=== PATIENT | female | born 1980 | race Caucasian/White ===

== ENCOUNTER 2017-02-17 17:23 | Emergency (ER) | payer MEDICAID ==
[~2017-02-17] VITALS: Ht 167.6 cm; Wt 68.0 kg
[~2017-02-17 17:23] MED LIST: APAP/BUTALBITAL1 TA1 PO; CIPRO 500MG TA500 MG PO; DICLOFENAC 50MG50 MG PO; FLEXERIL10 M1 PO; LISINOPRIL 10MG10 MG NG; ZOFRAN ODT4 MG PO
[2017-02-17] MEDS ORDERED: TOPIRAMATE50 MG PO (17:54)
[2017-02-17] MEDS ORDERED: MAXALT10 MG PO (17:56)
[2017-02-17] MEDS ORDERED: MELOXICAM15 MG PO (17:56)
[2017-02-17] MEDS ORDERED: EFFEXOR XR150 MG PO (17:56)
[2017-02-17] MEDS ORDERED: IBUPROFEN800 MG PO (18:41)
--- NOTE | 2017-02-17 18:42 | Urgent Treatment Center Report ---
History of Present Issue Date/Time Seen by Provider 02/17/17 4669 Visit Reason Pt arrived:Walked Presenting Problem:PT STATES PAIN TO LEFT WRIST. STATES SHE PICKED UP HER NEPHEW A MONTH AGO AND HAS HAD PAIN EVER SINCE. STATES PAIN WHEN SHE MOVES WRIST SIDE TO SIDE AND THAT PAIN IS WORSE AT NIGHT. Location if Accident: Onset of symptoms date/time:/ or onset unknown for:MEDICAL HX UNKNOWN Have you (or family members/close friends) recently traveled outside the [place]? N If Yes, where/when: Have you had exposure to infectious disease within the past month? TB? Other? Specify: Patient states that she has been having left wrist pain for over a month now state that pain has not improved and she thinks she may have pulled something in there. States that she can move the wrist area up and down without much pain but pain worsens when she trys to move it back and forth Source patient ALLERGIES Coded Allergies: No Known Allergies (02/17/17) Home Medications Reported Medications Topiramate 50 MG PO BID #60 Rizatriptan Benzoate (Maxalt) 10 MG PO PRN PRN MIGRAINES VENLAFAXINE HCL (Effexor XR 150MG) 150 MG PO DAILY Meloxicam (Meloxicam 15MG) 15 MG PO DAILY History Medical History General CAD? No Angina: No CA: No Hypertension? Yes Hyperlipidemia? No CHF? No DVT? No PE? No COPD? No Asthma? No Anemia? No GERD? No Gastric ulcers? No GI Bleed? No Hernia? No Thyroid Problems? No Hypothyroidism? No CVA? No Seizures? No Diabetes? No Renal Insuffiency? No UTI? No Stones? No GB Disease: No Nephritic Syndrome? No Asplenia? No Hepatitis? No Sickle Cell Disease? No Arthritis? No Migraines? Yes Cataracts? No Glaucoma? No MRSA? No HIV? No TB? No Anxiety? No Depression? No Cancer? 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 No: respiratory distress. 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 No Results/Orders Orders Procedure Date/time Status UTC STABILIZE JOINT/AREA 02/17 1837 Active Departure Departure Time of Disposition 1908 Disposition DC Home or Self Care(routine) Clinical Impression Primary Impression: Wrist sprain Qualifiers: Encounter type: initial encounter Laterality: left Qualified Code: S63.502A - Unspecified sprain of left wrist, initial encounter Condition STABLE Referrals Loree MULTANI,Shawn (Family): 2 Days-Call Office Follow up if no improvement or worsening of symptoms Patient Instructions DI for Wrist Sprain, How To Perform RICE (Rest, Ice, Compress, Elevate), Sprain Additional Instructions *RICE, Rest the extremity, Ice 15-20 minutes 3-4 times daily, Compress- wear the renato wrap, Elevate the extremity when at rest *Renato wrap is for support and help control swelling, use it except in the shower. Be sure that is not to tight but not to loose either *Elevate as discussed as much as possible to help reduce swelling and pain *Ibuprofen 600-800mg every 6-8 hours as needed for pain an inflammation. If need something more can take Tylenol in between doses of Ibuprofen to help Immediately follow up for new or worsening of symptoms, or no noticeable improvement over the nex 3-5 days Discharge Counseling Counseled pt/family regarding diagnosis, test results, medications/RX, home care, follow up needs Prescriptions Current Visit Scripts Ibuprofen (Ibuprofen 800MG) 800 MG PO QIDP PRN pain #30 TAB at 1908
--- NOTE | 2017-02-17 18:42 | Urgent Treatment Center Report ---
History of Present Issue Date/Time Seen by Provider 02/17/17 0698 Visit Reason Pt arrived:Walked Presenting Problem:PT STATES PAIN TO LEFT WRIST. STATES SHE PICKED UP HER NEPHEW A MONTH AGO AND HAS HAD PAIN EVER SINCE. STATES PAIN WHEN SHE MOVES WRIST SIDE TO SIDE AND THAT PAIN IS WORSE AT NIGHT. Location if Accident: Onset of symptoms date/time:/ or onset unknown for:MEDICAL HX UNKNOWN Have you (or family members/close friends) recently traveled outside the [place]? N If Yes, where/when: Have you had exposure to infectious disease within the past month? TB? Other? Specify: Patient states that she has been having left wrist pain for over a month now state that pain has not improved and she thinks she may have pulled something in there. States that she can move the wrist area up and down without much pain but pain worsens when she trys to move it back and forth Source patient ALLERGIES Coded Allergies: No Known Allergies (02/17/17) Home Medications Reported Medications Topiramate 50 MG PO BID #60 Rizatriptan Benzoate (Maxalt) 10 MG PO PRN PRN MIGRAINES VENLAFAXINE HCL (Effexor XR 150MG) 150 MG PO DAILY Meloxicam (Meloxicam 15MG) 15 MG PO DAILY History Medical History General CAD? No Angina: No HI: No Hypertension? Yes Hyperlipidemia? No CHF? No DVT? No PE? No COPD? No Asthma? No Anemia? No GERD? No Gastric ulcers? No GI Bleed? No Hernia? No Thyroid Problems? No Hypothyroidism? No CVA? No Seizures? No Diabetes? No Renal Insuffiency? No UTI? No Stones? No GB Disease: No Nephritic Syndrome? No Asplenia? No Hepatitis? No Sickle Cell Disease? No Arthritis? No Migraines? Yes Cataracts? No Glaucoma? No MRSA? No HIV? No TB? No Anxiety? No Depression? No Cancer? 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 No: respiratory distress. 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 No Results/Orders Orders Procedure Date/time Status UTC STABILIZE JOINT/AREA 02/17 1837 Active Departure Departure Time of Disposition 1908 Disposition DC Home or Self Care(routine) Clinical Impression Primary Impression: Wrist sprain Qualifiers: Encounter type: initial encounter Laterality: left Qualified Code: S63.502A - Unspecified sprain of left wrist, initial encounter Condition STABLE Referrals Loree MULTANI,Shawn (Family): 2 Days-Call Office Follow up if no improvement or worsening of symptoms Patient Instructions DI for Wrist Sprain, How To Perform RICE (Rest, Ice, Compress, Elevate), Sprain Additional Instructions *RICE, Rest the extremity, Ice 15-20 minutes 3-4 times daily, Compress- wear the renato wrap, Elevate the extremity when at rest *Renato wrap is for support and help control swelling, use it except in the shower. Be sure that is not to tight but not to loose either *Elevate as discussed as much as possible to help reduce swelling and pain *Ibuprofen 600-800mg every 6-8 hours as needed for pain an inflammation. If need something more can take Tylenol in between doses of Ibuprofen to help Immediately follow up for new or worsening of symptoms, or no noticeable improvement over the nex 3-5 days Discharge Counseling Counseled pt/family regarding diagnosis, test results, medications/RX, home care, follow up needs Prescriptions Current Visit Scripts Ibuprofen (Ibuprofen 800MG) 800 MG PO QIDP PRN pain #30 TAB at 1907
--- NOTE | 2017-02-17 19:05 | RADIOLOGY REPORT PS360 ---
WRIST-3 VIEWS-LT COMPARISON: None HISTORY: Left wrist pain after picking up his nephew TECHNIQUE: AP lateral and oblique views FINDINGS: The distal radius and ulna appear intact. The carpal bones appear normal and the soft tissues are normal. IMPRESSION: Negative left wrist
[2017-02-17 19:15] VITALS: BP 150/83
--- OUTSIDE RECORDS SUMMARY | 2017-02-18 07:40 | External Medical Summary Rpt ---
Author Author , Organization [employer] Address Unknown Phone Unavailable Care Team Providers Care Timing Machine Operator Name Role Phone TOMY SMITH MD, Unavailable Unavailable TOMY SMITH MD [facility] Unavailable Un[facility] NEEMA RODGERS Unavailable Unavailable [facility], Unavailable Unavailable [facility] Burton Snyder MD, Unavailable Unavailable VIRGILIO Soto MD Unavailable Unavailable [facility] PICKLESIMER ROSANNE, Unavailable Unavailable PICKLESIM[facility] ROSANNE SCIFRES, SCIFRES Unavailable Unavailable SCIFRES, SCIFRES Unavailable Unavailable BASILIO, BASILIO Unavailable Unavailable Purpose Continuity of Care Document - 11-14-2012 through 2016 Problems Code Diagnosis DOS Provider Status [id number] MIGRAINE 12-05-2016 [facility] UNS NOT ASSOCIATES INTRACT W/O STATUS MIGRAINOSUS J069 ACUTE UPPER 12-03-2016 [facility] RESPIRATORY INFECTION UNSPECIFIED [id number] MIGRAINE 11-07-2016 [facility] UNS ASSOCIATES INTRACTABLE W/O STATUS MIGRAINOSUS H5203 HYPERMETROP 11-02-2016 SCIFRES IA BILATERAL V2509 OT GENERAL 04-29-2015 [facility] CNSL&ADVICE GROUP CONTRACEPT MANAGEMENT V7231 ROUTINE 04-29-2015 [facility] AL EXAMINATION 847.2 847.2 08-03-2013 [facility] REGION 401.9 401.9 11-14-2012 [facility] Allergies, Adverse Reactions, Alerts Type Allergy to substance Adverse Reaction to Substance Substance Reaction Severity NO KNOWN ALLERGIES Unknown Unknown Medications Na ND Rx Da Fi Fi Am Da Di Ph RX Ph St me C No te ll ll ou ys ag ar # ys at rm s nt no ma ic us Or Da si cy ia de te s n re d ME 69 03 04 30 30 00 KE Ac LO 2 -2 .0 00 NT ti XI 70 8- - 00 UC ve CA 15 20 20 86 [place] M 90 17 17 91 15 7 29 CV S MG PH AR TA MA BL CY ET LL C, DB A CV S PH AR MA CY #0 54 37 VE 00 03 04 30 30 00 KE Ac NL 09 -2 -2 .0 00 NT ti AF 37 8- - 00 UC ve AX 38 20 20 86 [place] IN 69 17 17 34 E 8 27 CV HC S L PH ER AR MA 15 CY 0 MG LL C, CA P DB A CV S PH AR MA CY #0 54 37 TO 69 03 04 60 30 00 KE Ac PI 09 -1 -0 .0 00 NT ti RA 70 5- 7- 00 00 UC ve MA 81 20 20 87 [place] TE 70 17 17 24 3 23 CV 50 S PH MG AR MA TA CY BL ET LL C, DB A CV S PH AR MA CY #0 54 37 VE 00 02 03 30 30 00 KE Ac NL 09 -2 -2 .0 00 NT ti AF 37 7 4 00 UC ve AX 38 20 20 86 [place] IN 69 17 17 34 E 8 27 CV HC S L PH ER AR MA 15 CY 0 MG LL C, CA P DB A CV S PH AR MA CY #0 54 37 ME 69 02 03 30 30 00 KE Ac LO 09 -2 -2 .0 00 NT ti XI 70 7- 4- 00 UC ve CA 15 20 20 86 [place] M 90 17 17 91 15 7 29 CV S MG PH AR TA MA BL CY ET LL C, DB A CV S PH AR MA CY #0 54 37 BE 67 02 03 30 10 00 KE NZ 87 -1 -1 .0 00 NT ti ON 70 3- 0- 00 00 UC ve AT 10 20 20 87 [place] AT 60 17 17 18 E 5 55 CV 20 S 0 PH MG AR MA CA CY PS UL LL E C, DB A CV S PH AR MA CY #0 54 37 TO 69 02 03 60 30 00 KE Ac PI 09 -1 -1 .0 00 NT ti RA 70 5- 0- 00 00 UC ve MA 81 20 20 87 [place] TE 70 17 17 24 3 23 CV 50 S PH MG AR MA TA CY BL ET LL C, DB A CV S PH AR MA CY #0 54 37 RI 68 02 03 9. 25 00 KE Ac ZA 46 -0 -0 00 00 NT ti TR 20 8- 3- 0 00 UC ve IP 46 20 20 81 [place] TA 69 17 17 02 N 9 33 CV 10 S PH MG AR MA TA CY BL ET LL C, DB A CV S PH AR MA CY #0 54 37 ME 69 01 02 30 30 00 KE Ac LO 09 -3 -2 .0 00 NT ti XI 70 1- 4- 00 00 UC ve CA 15 20 20 86 [place] M 90 17 17 91 15 7 29 CV S MG PH AR TA MA BL CY ET LL C, DB A CV S PH AR MA CY #0 54 37 VE 00 01 02 30 30 00 KE Ac NL 09 -3 -2 .0 00 NT ti AF 37 1- 4- 00 00 UC ve AX 38 20 20 86 [place] IN 69 17 17 34 E 8 27 CV HC S L PH ER AR MA 15 CY 0 MG LL C, CA P DB A CV S PH AR MA CY #0 54 37 TO 69 01 02 98 30 00 KE Ac PI 09 -1 -1 .0 00 NT ti RA 70 8- 0- 00 00 UC ve MA 81 20 20 86 [place] TE 60 17 17 64 3 01 CV 25 S PH MG AR MA TA CY BL ET LL C, DB A CV S PH AR MA CY #0 54 37 ME 59 01 02 1. [address] 76 -1 -1 00 00 NT ti OX 24 6- 0- 0 00 UC ve YP 53 20 20 86 [place] RO 80 17 17 59 [address] S ER PH ON AR E MA 15 CY 0 MG LL /M C, L DB A CV S PH AR MA CY #0 54 37 RI 68 01 01 9. 25 00 KE Ac ZA 46 -0 -2 00 00 NT ti TR 20 4- 7- 0 00 UC ve IP 46 20 20 81 [place] TA 69 17 17 02 N 9 33 CV 10 S PH MG AR MA TA CY BL ET LL C, DB A CV S PH AR MA CY #0 54 37 VE 00 01 01 30 30 00 KE Ac NL 09 -0 -2 .0 00 NT ti AF 37 4- 7- 00 00 UC ve AX 38 20 20 86 [place] IN 69 17 17 34 E 8 27 CV HC S L PH ER AR MA 15 CY 0 MG LL C, CA P DB A CV S PH AR MA CY #0 54 37 ME 69 01 01 30 30 00 KE Ac LO 09 -0 -2 .0 00 NT ti XI 70 4- 7- 00 00 UC ve CA 15 20 20 86 [place] M 90 17 17 34 15 7 26 CV S MG PH AR TA MA BL CY ET LL C, DB A CV S PH AR MA CY #0 54 37 Vital Signs 08-03-2013 13:39 Name Value Interpretat Reference Comment ion Range BP 79 mm[Hg] Diastolic BP Systolic 119 mm[Hg] Heart 79 /min Rate/Pulse O2% 94 % Respiratory 20 /min Rate 08-03-2013 13:27 Name Value Interpretat Reference Comment ion Range BP 81 mm[Hg] Diastolic BP Systolic 129 mm[Hg] Heart 78 /min Rate/Pulse O2% 98 % Respiratory 20 /min Rate 11-14-2012 18:35 Name Value Interpretat Reference Comment ion Range Body 98.2 [degF] Temperature BP 90 mm[Hg] Diastolic BP Systolic 132 mm[Hg] Heart 82 /min Rate/Pulse O2% 97 % Respiratory 18 /min Rate 11-14-2012 17:43 Name Value Interpretat Reference Comment ion Range BP 94 mm[Hg] Diastolic BP Systolic 141 mm[Hg] Heart 82 /min Rate/Pulse O2% 97 % Respiratory 18 /min Rate Results Labs Lab Lab Date Result Refere Interp Status Commen Order Detail nces retati t Range on B-HCG Ur Ql (08-03-2013 12:15) B-HCG 10--2 NEGATIV NEG complet Ur Ql 013 E ed 12:15 URINALYSIS/COMPLETE (08-03-2013 12:15) URINE -14-2 YELLOW YELLOW complet COLOR 013 ed 12:15 URINE --2 CLEAR CLEAR complet APPEARA 013 ed NCE 12:15 URINE 10-14-2 NEGATIV NEG complet GLUCOSE 013 E ed - 12:15 DIPSTIC K URINE 10-14-2 NEGATIV NEG complet BILIRUB 013 E ed IN - 12:15 DIPSTIC K URINE 10-14-2 NEGATIV NEG complet KETONE 013 E mg/dL ed 12:15 URINE 10-14-2 Less 1.005-1 complet SPECIFI 013 than or .030 ed C 12:15 equal GRAVITY to 1.005 URINE 10-14-2 NEGATIV NEG complet BLOOD 013 E ed 12:15 URINE 10-14-2 7.0 UNK 5.0-8.5 complet PH 013 ed 12:15 URINE 10-14-2 NEGATIV NEG complet PROTEIN 013 E mg/dL ed - 12:15 DIPSTIC K URINE 08-03-2 0.2 NEG complet UROBILI 013 E.U./dL ed NOGEN - 12:15 DIPSTIC K URINE 08-03-2 NEGATIV NEG complet NITRATE 013 E ed - 12:15 DIPSTIC K URINE 08-03-2 NEGATIV NEG complet LEUK 013 E ed ESTERAS 12:15 E URINE 08-03-2 OCC 0 complet RBC 013 rbc/hpf ed 12:15 URINE 08-03-2 OCC O complet WBC 013 wbc/hpf ed 12:15 URINE 08-03-2 10-20 0-5 complet SQUAMOU 013 #/hpf ed S CELLS 12:15 URINE 08-03- TRACE O complet BACTERI 013 ed A 12:15 COMPREHENSIVE METABOLIC PANEL (11-14-2012 17:35) Glucose 72 74-106 complet 013 mg/dL ed Bld-mCn 17:35 c BUN 9 mg/dL 7-18 complet Bld-mCn 013 ed c 17:35 Creat 0.8 0.6-1.0 complet SerPl-m 013 mg/dL ed Cnc 17:35 ESTIMAT 111 50-200 complet ED 013 ML/MIN ed CREATIN 17:35 INE CLEARAN CE GFR 83 59- complet (ESTIMA 013 ML/MIN ed CASANDRA) 17:35 Sodium 139 136-145 complet SerPl-s 013 mmoL/L ed Cnc 17:35 Potassi 3.7 3.5-5.1 complet um 013 mmoL/L ed SerPl-s 17:35 Cnc Chlorid 104 98-107 complet e 013 mmoL/L ed SerPl-s 17:35 Cnc CO2 25 21.0-32 complet SerPl-s 013 mmoL/L .0 ed Cnc 17:35 Calcium 8.8 8.5-10. complet 013 mg/dL 1 ed SerPl-m 17:35 Cnc Prot 7.4 6.4-8.2 complet SerPl-m 013 gm/dL ed Cnc 17:35 Albumin 4.0 3.4-5.0 complet 013 gm/dL ed SerPl-m 17:35 Cnc Globuli 3.4 1.3-3.2 complet n 013 gm/dL ed Ser-mCn 17:35 c Albumin 2 1.2 UNK 1.1-1.8 complet /Glob 013 ed SerPl-m 17:35 Rto Bilirub 0.3 0.2-1.0 complet 013 mg/dL ed SerPl-m 17:35 Cnc AST 12 U/L 15-37 complet SerPl-c 013 ed Cnc 17:35 ALT 34 U/L 30-65 complet SerPl-c 013 ed Cnc 17:35 ALP 104 U/L 50-136 complet SerPl-c 013 ed Cnc 17:35 CBC with AUTO DIFF (11-14-2012 17:35) WBC # 11-14- 10.5 4.8-10. complet Bld 013 K/MM3 8 ed Auto 17:35 RBC # 2 4.51 4.2-5.4 complet Bld 013 M/mm3 ed Auto 17:35 Hgb 13.5 12.2-16 complet Bld-mCn 013 g/dL .2 ed c 17:35 Hct Fr 40.5 % 37.0-47 complet Bld 013 .0 ed 17:35 MCV RBC 89.8 fl 82.2-97 complet 013 .8 ed 17:35 MCH RBC 30.0 pg 27-31.2 complet Qn 013 ed Auto 17:35 MEAN 33.4 31.8-35 complet CORPUSC 013 g/dl .4 ed ULAR 17:35 HGB CONC RDW RBC 13.3 % 11.5-17 complet Auto 013 .5 ed 17:35 Platele 329 142-424 complet t Bld 013 K/mm3 ed Ql 17:35 Manual MEAN 6.8 fl 7.4-10. complet PLATELE 013 4 ed T 17:35 VOLUME Granulo 54.4 % 37.0-80 complet cytes 013 .0 ed Fr Bld 17:35 Auto LYMPH % 11-14-2 36.0 % 10-50.0 complet 013 ed 17:35 Monocyt 11-14-2 5.3 % 1.7-9.3 complet es Fr 013 ed Bld 17:35 Auto Eosinop 11-14-2 3.9 % 0.1-12. complet hil Fr 013 0 ed Bld 17:35 Auto Basophi 11-14-2 0.5 % 0.1-2.0 complet ls Fr 013 ed Bld 17:35 Auto Granulo 2 5.7 1.8-7.8 complet cytes # 013 K/mm3 ed Bld 17:35 Auto Lymphoc 3.8 0.7-4.5 complet ytes Fr 013 K/mm3 ed Bld 17:35 Auto Monocyt 0.6 0.1-1.0 complet es # 013 K/mm3 ed Bld 17:35 Auto Eosinop 0.4 0.0-0.4 complet hil # 013 K/mm3 ed Bld 17:35 Auto Basophi 11-14-2 0.1 0-0.2 complet ls # 013 K/MM3 ed Bld 17:35 Auto B-HCG Ur Ql (11-14-2012 17:00) B-HCG NEGATIV NEG complet Ur Ql 013 E ed 17:00 URINALYSIS/COMPLETE (11-14-2012 17:00) URINE YELLOW YELLOW complet COLOR 013 ed 17:00 URINE SL CLEAR complet APPEARA 013 CLOUDY ed NCE 17:00 URINE NEGATIV NEG complet GLUCOSE 013 E ed - 17:00 DIPSTIC K URINE NEGATIV NEG complet BILIRUB 013 E ed IN - 17:00 DIPSTIC K URINE NEGATIV NEG complet KETONE 013 E mg/dL ed 17:00 URINE 1.025 1.005-1 complet SPECIFI 013 UNK .030 ed C 17:00 GRAVITY URINE NEGATIV NEG complet BLOOD 013 E ed 17:00 URINE 6.0 UNK 5.0-8.5 complet PH 013 ed 17:00 URINE NEGATIV NEG complet PROTEIN 013 E mg/dL ed - 17:00 DIPSTIC K URINE 0.2 NEG complet UROBILI 013 E.U./dL ed NOGEN - 17:00 DIPSTIC K URINE NEGATIV NEG complet NITRATE 013 E ed - 17:00 DIPSTIC K URINE NEGATIV NEG complet LEUK 013 E ed ESTERAS 17:00 E URINE 3-5 O complet WBC 013 wbc/hpf ed 17:00 URINE 50-100 0-5 complet SQUAMOU 013 #/hpf ed S CELLS 17:00 URINE 1+ OCC complet MUCUS 013 ed 17:00 Procedures Procedure DOS Code Location Performer Comment BLOOD 29438 [facility]ILY FAMILY COUNT 7 CARE CARE COMPLETE ASSOCIATE ASSOCIATE AUTO&AUTO S S DIFRNTL WBC IAADIADOO 70846 [facility] [place] 7 CARE STREPTOCO ASSOCIATE CCUS S GROUP A OPH 62853 [employer] MEDICAL 7 XM&EVAL COMPRE NEW PT 1/> VST CYTP C/V 58276 [facility] 5 [facility] ER JR ROSANNE LYR PREPJ SCR MNL RESCR PHYS URNLS DIP 08902 [facility] BETHEA 5 PHYSICIAN FARA STICK/TAB S GROUP LET RGNT NON-AUTO W/O MICRSCP Encounters Encounter Start End Date Code Location Performer Type Date OFFICE 08325 [facility]ILY STACIABERRY OUTPATIEN 7 7 CARE T VISIT ASSOCIATE 15 S MINUTES OFFICE 75588 [facility] [place] OUTPATIEN 7 7 CARE T VISIT ASSOCIATE 15 S MINUTES OFFICE 77929 FAMILY MULBERRY OUTPATIEN 7 7 CARE T VISIT ASSOCIATE 15 S MINUTES INITIAL 24467 [facility] PREVENTIV 5 5 PHYSICIAN E S GROUP MEDICINE NEW PT AGE 18-39YRS Emergency GERMAN SMITH MD (ER) 3 12:09 3 13:39 [facility] Emergency GERMAN Snyder MD (ER) 3 16:49 3 18:36 [facility]
--- OUTSIDE RECORDS SUMMARY | 2017-02-18 07:40 | External Medical Summary Rpt ---
Author Author , Organization [employer] Address Unknown Phone Unavailable Care Team Providers Care Drywall Taper Helper Name Role Phone TOMY SMITH MD, Unavailable Unavailable TOMY SMITH MD [facility] Unavailable Unavailable [facility] NEEMA RODGERS Unavailable Unavailable [facility], Unavailable Unavailable [facility] Burton Snyder MD, Unavailable Unavailable VIRGILIO Soto MD Unavailable Unavailable [facility] PICKLESIMER ROSANNE, Unavailable Unavailable PICKLESIMER ROSANNE SCIFRES, SCIFRES Unavailable Unavailable SCIFRES, SCIFRES Unavailable Unavailable BASILIO, BASILIO Unavailable Unavailable Purpose Continuity of Care Document - 11-14-2012 through 2016 Problems Code Diagnosis DOS Provider Status [id number] MIGRAINE 12-05-2016 [facility] UNS NOT ASSOCIATES INTRACT W/O STATUS MIGRAINOSUS J069 ACUTE UPPER 12-03-2016 [facility] RESPIRATORY INFECTION UNSPECIFIED [id number] MIGRAINE 11-07-2016 [facility] UNS ASSOCIATES INTRACTABLE W/O STATUS MIGRAINOSUS H5203 HYPERMETROP 11-02-2016 SCIFRES IA BILATERAL V2509 OT GENERAL 04-29-2015 [facility] CNSL&ADVICE GROUP CONTRACEPT MANAGEMENT V7231 ROUTINE 04-29-2015 [facility] AL EXAMINATION 847.2 847.2 08-03-2013 [facility] REGION 401.9 401.9 11-14-2012 [facility] Allergies, Adverse Reactions, Alerts Type Allergy [...] Procedure DOS Code Location Performer Comment BLOOD 43262 FAMILY FAMILY COUNT 7 CARE CARE COMPLETE ASSOCIATE ASSOCIATE AUTO&AUTO S S DIFRNTL WBC IAADIADOO 65740 FAMILY [place] 7 CARE STREPTOCO ASSOCIATE CCUS S GROUP A OPH 52277 [employer] MEDICAL 7 XM&EVAL COMPRE NEW PT 1/> VST CYTP C/V 82779 [facility] ER JR ROSANNE LYR PREPJ SCR MNL RESCR PHYS URNLS DIP 54738 [facility] BETHEA 5 PHYSICIAN FARA STICK/TAB S GROUP LET RGNT NON-AUTO W/O MICRSCP Encounters Encounter Start End Date Code Location Performer Type Date OFFICE 51253 [facility]ILY STACIABERRY OUTPATIEN 7 7 CARE T VISIT ASSOCIATE 15 S MINUTES OFFICE 16717 [facility] [place] OUTPATIEN 7 7 CARE T VISIT ASSOCIATE 15 S MINUTES OFFICE 73363 FAMILY MULBERRY OUTPATIEN 7 7 CARE T VISIT ASSOCIATE 15 S MINUTES INITIAL 79532 [facility] PREVENTIV 5 5 PHYSICIAN E S GROUP MEDICINE NEW PT AGE 18-39YRS Emergency GERMAN SMITH MD (ER) 3 12:09 3 13:39 [facility] Emergency GERMAN Snyder MD (ER) 3 16:49 3 18:36 [facility]
--- OUTSIDE RECORDS SUMMARY | 2017-02-18 07:41 | External Medical Summary Rpt ---
Author Author , Organization [employer] Address Unknown Phone Unavailable Care Team Providers Care Mannequin Sander And Finisher Name Role Phone [facility] Unavailable Un[facility] BETHEA FARA, BETHEA Unavailable Unavailable FARA [facility], Unavailable Unavailable [facility] MULBERRY, MULBERRY Unavailable Unavailable [facility] PICKLESIMER JR ROSANNE, Unavailable Unavailable [facility]LESIM[facility] JR ROSANNE SCIFRES, SCIFRES Unavailable Unavailable SCIFRES, SCIFRES Unavailable Unavailable BASILIO, BASILIO Unavailable Unavailable Purpose Continuity of Care Document - 04-29-2015 through 2016 Problems Code Diagnosis DOS Provider Status [id number] MIGRAINE 12-05-2016 [facility] UNS NOT ASSOCIATES INTRACT W/O STATUS MIGRAINOSUS J069 ACUTE UPPER 12-03-2016 [facility] ASSOCIATES RESPIRATORY INFECTION UNSPECIFIED [id number] MIGRAINE 11-07-2016 [facility] UNS ASSOCIATES INTRACTABLE W/O STATUS MIGRAINOSUS H5203 HYPERMETROP 11-02-2016 SCIFRES [place] BILATERAL V2509 OTH GENERAL 04-29-2015 [facility] CNSL&ADVICE GROUP CONTRACEPT MANAGEMENT V7231 ROUTINE 04-29-2015 [facility] AL EXAMINATION Medications Na ND Rx Da Fi Fi Am Da Di Ph RX Ph St me C No te ll ll ou ys ag ar # ys at rm s nt no ma ic us Or Da si cy ia de te s n re d VE 00 03 04 30 30 00 KE Ac NL 2 -2 .0 00 NT ti AF 37 8- 00 UC ve AX 38 20 20 86 [place] IN 69 17 17 34 E 8 27 CV HC S L PH ER AR MA 15 CY 0 MG LL C, CA P DB A CV S PH AR MA CY #0 54 37 ME 69 03 04 30 30 00 KE Ac LO 2 -2 .0 00 NT ti XI 70 8- 00 UC ve CA 15 20 20 [...] NT ti XI 70 7- 4- 00 00 UC ve CA 15 20 20 86 [place] M 90 17 17 91 15 7 29 CV S MG PH AR TA MA BL CY ET LL C, DB A CV S PH AR MA CY #0 54 37 VE 00 02 03 30 30 00 KE Ac NL 09 -2 -2 .0 00 NT ti AF 37 7- 4- 00 00 UC ve AX 38 20 20 86 [place] IN 69 17 17 34 E 8 27 CV HC S L PH ER AR MA 15 CY 0 MG LL C, CA P DB A CV S PH AR MA CY #0 54 37 BE 67 02 03 30 10 00 KE Ac NZ 87 -1 -1 .0 00 NT [...] PH AR MA CY #0 54 37 Procedures Procedure DOS Code Location Performer Comment BLOOD 33280 FAMILY FAMILY COUNT 7 CARE CARE COMPLETE ASSOCIATE ASSOCIATE AUTO&AUTO S S DIFRNTL WBC IAADIADOO 68026 FAMILY BASILIO 7 CARE STREPTOCO ASSOCIATE CCUS S GROUP A OPHTH 41511 SCIFRES SCIFRES MEDICAL 7 XM&EVAL COMPRE NEW PT 1/> VST CYTP C/V 63391 [facility] ER JR ROSANNE LYR PREPJ SCR MNL RESCR PHYS URNLS DIP 60410 [facility] BETHEA 5 PHYSICIAN FARA STICK/TAB S GROUP LET RGNT NON-AUTO W/O MICRSCP Encounters Encounter Start End Date Code Location Performer Type Date OFFICE 95919 FAMILY MULBERRY OUTPATIEN 7 7 CARE T VISIT ASSOCIATE 15 S MINUTES OFFICE 24533 FAMILY BASILIO OUTPATIEN 7 7 CARE T VISIT ASSOCIATE 15 S MINUTES OFFICE 12982 FAMILY MULBERRY OUTPATIEN 7 7 CARE T VISIT ASSOCIATE 15 S MINUTES INITIAL 38253 [facility] PREVENTIV 5 5 PHYSICIAN E S GROUP MEDICINE NEW PT AGE 18-39YRS
--- OUTSIDE RECORDS SUMMARY | 2017-02-18 07:41 | External Medical Summary Rpt ---
Demographics Preferred Language Portuguese Marital Status Unknown Episcopal Affiliation Unknown Race Unknown Ethnic Group Unknown Author Author , Organization [employer] Address Unknown Phone Unavailable Purpose Continuity of Care Document - through 2016 Immunization No patient found.
--- OUTSIDE RECORDS SUMMARY | 2017-02-18 07:41 | External Medical Summary Rpt ---
Author Author SIXTO Charles, [employer] Organization [employer] Address Unknown Phone Unavailable
--- OUTSIDE RECORDS SUMMARY | 2017-02-18 07:41 | External Medical Summary Rpt ---
Author Author , Organization [employer] Address Unknown Phone Unavailable Care Team Providers Care Epilepsy Physician Name Role Phone [facility] Unavailable [facility] BETHEA FARA, BETHEA Unavailable Unavailable FARA [facility], Unavailable Unavailable [facility] MULBERRY, MULBERRY Unavailable Unavailable [facility] PICKLESIMER JR ROSANNE, Unavailable Unavailable PICKLESIMER JR ROSANNE SCIFRES, SCIFRES Unavailable Unavailable SCIFRES, SCIFRES Unavailable Unavailable BASILIO, BASILIO Unavailable Unavailable Purpose Continuity of Care Document - 04-29-2015 through 2016 Problems Code Diagnosis DOS Provider Status [id number] MIGRAINE 12-05-2016 [facility] UNS NOT ASSOCIATES INTRACT W/O STATUS MIGRAINOSUS J069 ACUTE UPPER 12-03-2016 [facility]ATES RESPIRATORY INFECTION UNSPECIFIED [id number] MIGRAINE 11-07-2016 [facility] UNS ASSOCIATES INTRACTABLE W/O STATUS MIGRAINOSUS H5203 HYPERMETROP 11-02-2016 SCIFRES IA BILATERAL V2509 OTH GENERAL 04-29-2015 [facility] CNSL&ADVICE GROUP CONTRACEPT MANAGEMENT V7231 [...] Procedure DOS Code Location Performer Comment BLOOD 37455 FAMILY FAMILY COUNT 7 CARE CARE COMPLETE ASSOCIATE ASSOCIATE AUTO&AUTO S S DIFRNTL WBC IAADIADOO 01150 FAMILY BASILIO 7 CARE STREPTOCO ASSOCIATE CCUS S GROUP A OPHTH 28847 SCIFRES SCIFRES MEDICAL 7 XM&EVAL COMPRE NEW PT 1/> VST CYTP C/V 41854 [facility] ER JR ROSANNE LYR PREPJ SCR MNL RESCR PHYS URNLS DIP 56820 [facility] BETHEA 5 PHYSICIAN FARA STICK/TAB S GROUP LET RGNT NON-AUTO W/O MICRSCP Encounters Encounter Start End Date Code Location Performer Type Date OFFICE 74037 FAMILY MULBERRY OUTPATIEN 7 7 CARE T VISIT ASSOCIATE 15 S MINUTES OFFICE 95454 FAMILY BASILIO OUTPATIEN 7 7 CARE T VISIT ASSOCIATE 15 S MINUTES OFFICE 74091 FAMILY MULBERRY OUTPATIEN 7 7 CARE T VISIT ASSOCIATE 15 S MINUTES INITIAL 47122 [facility] PREVENTIV 5 5 PHYSICIAN E S GROUP MEDICINE NEW PT AGE 18-39YRS
--- OUTSIDE RECORDS SUMMARY | 2017-02-18 07:41 | External Medical Summary Rpt ---
Demographics Preferred Language Chinese Marital Status Unknown Congregation Affiliation Unknown Race Unknown Ethnic Group Unknown Author Author , Organization [employer] Address Unknown Phone Unavailable Purpose Continuity of Care Document - through 2016 Immunization No patient found.
--- OUTSIDE RECORDS SUMMARY | 2017-02-18 07:42 | External Medical Summary Rpt ---
Author Author , Organization [employer] Address Unknown Phone Unavailable Care Team Providers Care Campaign Assistant Name Role Phone TOMY SMITH MD, Unavailable Unavailable TOMY SMITH MD [facility] Unavailable Unavailable [facility] NEEMA CHAUDHARI, NEEMA Unavailable Unavailable FARA [facility], Unavailable Unavailable [facility] Burton Snyder MD, Unavailable Unavailable VIRGILIO Soto MD Unavailable Unavailable [facility] PICKLESIMER ROSANNE, Unavailable Unavailable PICKLOWIMER ROSANNE SCIFRES, SCIFRES Unavailable Unavailable SCIFRES, SCIFRES Unavailable Unavailable BASILIO, BASILIO Unavailable Unavailable Purpose Continuity of Care Document - 11-14-2012 through 2016 Problems Code Diagnosis DOS Provider Status [id number] MIGRAINE 12-05-2016 [facility] UNS NOT ASSOCIATES INTRACT W/O STATUS MIGRAINOSUS J069 ACUTE UPPER 12-03-2016 [facility] RESPIRATORY INFECTION UNSPECIFIED [id number] MIGRAINE 11-07-2016 [facility] UNS ASSOCIATES INTRACTABLE W/O STATUS MIGRAINOSUS H5203 HYPERMETROP 11-02-2016 SCIFRES IA BILATERAL V2509 OTH GENERAL 04-29-2015 [facility] CNSL&ADVICE GROUP CONTRACEPT MANAGEMENT V7231 ROUTINE 04-29-2015 [facility] AL EXAMINATION 847.2 847.2 08-03-2013 [facility] REGION 401.9 401.9 11-14-2012 [facility] Allergies, Adverse Reactions, Alerts Type Allergy [...] 04 30 30 00 KE Ac NL .0 00 NT ti AF 37 8- - 00 00 UC ve AX 38 20 20 86 [place] IN 69 17 17 34 E 8 27 CV HC S L PH ER AR MA 15 CY 0 MG LL C, CA P DB A CV S PH AR MA CY #0 54 37 ME 69 03 04 30 30 00 KE Ac LO 09 -2 -2 .0 00 NT ti XI 70 8- - 00 00 UC ve CA 15 20 [...] 69 02 03 30 30 00 KE LO 2 -2 .0 00 NT ti XI 70 7- 4- 00 00 UC ve CA 15 20 20 86 [place] M 90 17 17 91 15 7 29 CV S MG PH AR TA MA BL CY ET LL C, DB A CV S PH AR MA CY #0 54 37 VE 00 02 03 30 30 00 KE NL -2 -2 .0 00 NT ti AF [...] 69 02 03 60 30 00 KE PI 09 -1 -1 .0 00 NT [...] on B-HCG Ur Ql (08-03-2013 12:15) B-HCG 10-14-2 NEGATIV NEG complet Ur Ql 013 E ed 12:15 URINALYSIS/COMPLETE (08-03-2013 12:15) URINE 10-14-2 YELLOW YELLOW complet COLOR 013 ed 12:15 URINE 10-14-2 CLEAR CLEAR complet APPEARA 013 ed NCE [...] SerPl-m 013 gm/dL ed Cnc 17:35 Albumin 01-25-2 4.0 3.4-5.0 complet 013 gm/dL ed SerPl-m [...] with AUTO DIFF (11-14-2012 17:35) WBC # 11-14-2 10.5 4.8-10. complet Bld 013 K/MM3 8 ed Auto 17:35 RBC # 11-14-2 4.51 4.2-5.4 complet Bld 013 M/mm3 ed [...] Fr 013 ed Bld 17:35 Auto Granulo 11-14-2 5.7 1.8-7.8 complet cytes # 013 K/mm3 ed Bld 17:35 Auto Lymphoc 11-14-2 3.8 0.7-4.5 complet ytes Fr 013 K/mm3 ed Bld 17:35 Auto Monocyt 11-14-2 0.6 0.1-1.0 complet es # 013 K/mm3 ed Bld 17:35 Auto Eosinop 11-14-2 0.4 0.0-0.4 complet hil # 013 K/mm3 [...] Procedure DOS Code Location Performer Comment BLOOD 24219 FAMILY COUNT 7 CARE CARE COMPLETE ASSOCIATE ASSOCIATE AUTO&AUTO S S DIFRNTL WBC IAADIADOO 75871 FAMILY [place] 7 CARE STREPTOCO ASSOCIATE CCUS S GROUP A OPH 37547 [facility] MED[facility] 7 XM&EVAL COMPRE NEW PT 1/> VST URNLS DIP 88836 [facility] BETHEA 5 PHYSICIAN FARA STICK/TAB S GROUP LET RGNT NON-AUTO W/O MICRSCP CYTP C/V 87152 [facility] ER JR ROSANNE LYR PREPJ SCR MNL RESCR PHYS Encounters Encounter Start End Date Code Location Performer Type Date OFFICE 18642 FAMILY STACIABERRY OUTPATIEN 7 7 CARE T VISIT ASSOCIATE 15 S MINUTES OFFICE 40186 FAMILY [place] OUTPATIEN 7 7 CARE T VISIT ASSOCIATE 15 S MINUTES OFFICE 06269 FAMILY MULBERRY OUTPATIEN 7 7 CARE T VISIT ASSOCIATE 15 S MINUTES INITIAL 96631 [facility] PREVENTIV 5 5 PHYSICIAN E S GROUP MEDICINE NEW PT AGE 18-39YRS Emergency GERMAN SMITH MD (ER) 3 12:09 3 13:39 [facility] Emergency GERMAN Snyder MD (ER) 3 16:49 3 18:36 [facility]
--- OUTSIDE RECORDS SUMMARY | 2017-02-18 07:42 | External Medical Summary Rpt ---
Author Author , Organization [employer] Address Unknown Phone Unavailable Care Team Providers Care Autism Specialist Name Role Phone TOMY SMITH MD, Unavailable Unavailable TOMY SMITH MD [facility] Unavailable Unavailable ASSOCI[facility], [facility] NEEMA CHAUDHARI, NEEMA Unavailable Unavailable FARA [facility], Unavailable Unavailable [facility] Burton Snyder MD, Unavailable Unavailable VIRGILIO Soto MD Unavailable Unavailable [facility] PICKLESIMER ROSANNE, Unavailable Unavailable PICKLWOIMER ROSANNE SCIFRES, SCIFRES Unavailable Unavailable SCIFRES, SCIFRES Unavailable Unavailable BASILIO, BASILIO Unavailable Unavailable Purpose Continuity of Care Document - 11-14-2012 through 2016 Problems Code Diagnosis DOS Provider Status [id number] MIGRAINE 12-05-2016 [facility] UNS NOT ASSOCIATES INTRACT W/O STATUS MIGRAINOSUS J069 ACUTE UPPER 12-03-2016 [facility] RESPIRATORY INFECTION UNSPECIFIED M20948 MIGRAINE 11-07-2016 [facility] UNS ASSOCIATES INTRACTABLE W/O STATUS MIGRAINOSUS H5203 HYPERMETROP 11-02-2016 SCIFRES IA BILATERAL V2509 OTH GENERAL 04-29-2015 [facility] CNSL&ADVICE GROUP CONTRACEPT MANAGEMENT V7231 ROUTINE 04-29-2015 [facility] AL EXAMINATION 847.2 847.2 08-03-2013 [facility] REGION 401.9 401.9 11-14-2012 [facility] Allergies, Adverse Reactions, Alerts Type Allergy [...] Procedure DOS Code Location Performer Comment BLOOD 76853 FAMILY COUNT 7 CARE CARE COMPLETE ASSOCIATE ASSOCIATE AUTO&AUTO S S DIFRNTL WBC IAADIADOO 41238 FAMILY [place] 7 CARE STREPTOCO ASSOCIATE CCUS S GROUP A OPH 62050 [employer] [facility] 7 XM&EVAL COMPRE NEW PT 1/> VST URNLS DIP 39632 [facility] BETHEA 5 PHYSICIAN FARA STICK/TAB S GROUP LET RGNT NON-AUTO W/O MICRSCP CYTP C/V 79475 [facility] ER JR ROSANNE LYR PREPJ SCR MNL RESCR PHYS Encounters Encounter Start End Date Code Location Performer Type Date OFFICE 37532 FAMILY STACIABERRY OUTPATIEN 7 7 CARE T VISIT ASSOCIATE 15 S MINUTES OFFICE 58790 FAMILY [place] OUTPATIEN 7 7 CARE T VISIT ASSOCIATE 15 S MINUTES OFFICE 88554 FAMILY MULBERRY OUTPATIEN 7 7 CARE T VISIT ASSOCIATE 15 S MINUTES INITIAL 02275 [facility] PREVENTIV 5 5 PHYSICIAN E S GROUP MEDICINE NEW PT AGE 18-39YRS Emergency GERMAN SMITH MD (ER) 3 12:09 3 13:39 [facility] Emergency GERMAN Snyder MD (ER) 3 16:49 3 18:36 [facility]
--- OUTSIDE RECORDS SUMMARY | 2017-02-18 07:43 | External Medical Summary Rpt ---
Author Author , Organization [employer] Address Unknown Phone Unavailable Care Team Providers Care Claim Investigator Name Role Phone [facility] Unavailable Unavailable ASSOCI[facility], [facility] BETHEA FARA, BETHEA Unavailable Unavailable FARA [facility], Unavailable Unavailable [facility] MULBERRY, MULBERRY Unavailable Unavailable [facility] PICKLESIMER JR ROSANNE, Unavailable Unavailable PICKLESIMER JR ROSANNE SCIFRES, SCIFRES Unavailable Unavailable SCIFRES, SCIFRES Unavailable Unavailable BASILIO, BASILIO Unavailable Unavailable Purpose Continuity of Care Document - 04-29-2015 through 2016 Problems Code Diagnosis DOS Provider Status [id number] MIGRAINE 12-05-2016 [facility] UNS NOT ASSOCIATES INTRACT W/O STATUS MIGRAINOSUS J069 ACUTE UPPER 12-03-2016 [facility] ASSOCIATES RESPIRATORY INFECTION UNSPECIFIED [id number] MIGRAINE 11-07-2016 [facility] UNS ASSOCIATES INTRACTABLE W/O STATUS MIGRAINOSUS H5203 HYPERMETROP 11-02-2016 SCIFRES [place] BILATERAL V2509 OTH GENERAL 04-29-2015 [facility] CNSL&ADVICE GROUP CONTRACEPT MANAGEMENT V7231 [...] Procedure DOS Code Location Performer Comment BLOOD 28444 FAMILY FAMILY COUNT 7 CARE CARE COMPLETE ASSOCIATE ASSOCIATE AUTO&AUTO S S DIFRNTL WBC IAADIADOO 74445 FAMILY BASILIO 7 CARE STREPTOCO ASSOCIATE CCUS S GROUP A OPHTH 60886 SCIFRES SCIFRES MEDICAL 7 XM&EVAL COMPRE NEW PT 1/> VST URNLS DIP 99449 [facility] BETHEA 5 PHYSICIAN FARA STICK/TAB S GROUP LET RGNT NON-AUTO W/O MICRSCP CYTP C/V 87275 [facility] ER JR ROSANNE LYR PREPJ SCR MNL RESCR PHYS Encounters Encounter Start End Date Code Location Performer Type Date OFFICE 34388 FAMILY MULBERRY OUTPATIEN 7 7 CARE T VISIT ASSOCIATE 15 S MINUTES OFFICE 76270 FAMILY BASILIO OUTPATIEN 7 7 CARE T VISIT ASSOCIATE 15 S MINUTES OFFICE 01476 FAMILY MULBERRY OUTPATIEN 7 7 CARE T VISIT ASSOCIATE 15 S MINUTES INITIAL 57285 [facility] PRE[facility] 5 5 PHYSICIAN E S GROUP MEDICINE NEW PT AGE 18-39YRS
--- OUTSIDE RECORDS SUMMARY | 2017-02-18 07:43 | External Medical Summary Rpt ---
Demographics Preferred Language Georgian Marital Status Unknown Pentecostal Affiliation Unknown Race Unknown Ethnic Group Unknown Author Author , Organization [employer] Address Unknown Phone Unavailable Purpose Continuity of Care Document - through 2016 Immunization No patient found.
--- OUTSIDE RECORDS SUMMARY | 2017-02-18 07:43 | External Medical Summary Rpt ---
Author Author , Organization [employer] Address Unknown Phone Unavailable Care Team Providers Care Pet Care Worker Name Role Phone [facility] Unavailable Unavailable [facility], [facility] BETHEA FARA, BETHEA Unavailable Unavailable FARA [facility], Unavailable Unavailable [facility] MULBERRY, MULBERRY Unavailable Unavailable [facility] PICKLESIMER JR ROSANNE, Unavailable Unavailable PICKLESIMER JR ROSANNE SCIFRES, SCIFRES Unavailable Unavailable SCIFRES, SCIFRES Unavailable Unavailable BASILIO, BASILIO Unavailable Unavailable Purpose Continuity of Care Document - 04-29-2015 through 2016 Problems Code Diagnosis DOS Provider Status [id number] MIGRAINE 12-05-2016 [facility] UNS NOT ASSOCIATES INTRACT W/O STATUS MIGRAINOSUS J069 ACUTE UPPER 12-03-2016 [facility] RESPIRATORY INFECTION UNSPECIFIED [id number] MIGRAINE 11-07-2016 [facility] UNS ASSOCIATES INTRACTABLE W/O STATUS MIGRAINOSUS H5203 HYPERMETROP 11-02-2016 SCIFRES IA BILATERAL V2509 OTH GENERAL 04-29-2015 [facility] CNSL&ADVICE GROUP CONTRACEPT MANAGEMENT V7231 ROUTINE [...] Procedure DOS Code Location Performer Comment BLOOD 27349 FAMILY FAMILY COUNT 7 CARE CARE COMPLETE ASSOCIATE ASSOCIATE AUTO&AUTO S S DIFRNTL WBC IAADIADOO 72608 FAMILY BASILIO 7 CARE STREPTOCO ASSOCIATE CCUS S GROUP A OPHTH 36160 SCIFRES SCIFRES MEDICAL 7 XM&EVAL COMPRE NEW PT 1/> VST URNLS DIP 33660 [facility] BETHEA 5 PHYSICIAN FARA STICK/TAB S GROUP LET RGNT NON-AUTO W/O MICRSCP CYTP C/V 50283 [facility] ER JR ROSANNE LYR PREPJ SCR MNL RESCR PHYS Encounters Encounter Start End Date Code Location Performer Type Date OFFICE 52630 FAMILY MULBERRY OUTPATIEN 7 7 CARE T VISIT ASSOCIATE 15 S MINUTES OFFICE 66677 FAMILY BASILIO OUTPATIEN 7 7 CARE T VISIT ASSOCIATE 15 S MINUTES OFFICE 59190 FAMILY MULBERRY OUTPATIEN 7 7 CARE T VISIT ASSOCIATE 15 S MINUTES INITIAL 44226 [facility] PREVENTIV 5 5 PHYSICIAN E S GROUP MEDICINE NEW PT AGE 18-39YRS
--- OUTSIDE RECORDS SUMMARY | 2017-02-18 07:43 | External Medical Summary Rpt ---
Demographics Preferred Language Latvian Marital Status Unknown Worship Affiliation Unknown Race Unknown Ethnic Group Unknown Author Author , Organization [employer] Address Unknown Phone Unavailable Purpose Continuity of Care Document - through 2016 Immunization No patient found.
== END 2017-02-17 19:16 | disposition home or self-care (01) ==
LOC: UTC 17:23
DX: S63.502A Unspecified sprain of left wrist, initial encounter (principal); I10 Essential (primary) hypertension; Z72.0 Tobacco use; X50.0XXA Overexertion from strenuous movement or load, initial encounter; Y92.009 Unspecified place in unspecified non-institutional (private) residence as the place of occurrence of the external cause